=== PATIENT | male | born 2000 | race Caucasian/White ===

== ENCOUNTER 2019-07-09 17:01 | Inpatient (IN) | payer OTHER ==
[~2019-07-09] VITALS: Ht 172.7 cm; Wt 78.0 kg
[2019-07-09 19:00] VITALS: BP 123/63
[2019-07-09 19:20] VITALS: BP 123/63
[2019-07-09] MEDS ORDERED: ACETAMINOPHEN 325 MG TABLET PO PRN (19:30)
[2019-07-09] MEDS: SENNA 187 MG TABLET PO SCH (20:50)
[2019-07-09] MEDS: DOCUSATE SODIUM 100 MG CAPSULE PO SCH (20:51)
[2019-07-09] MEDS: SODIUM CHLORIDE 1 GM TABLET PO SCH (23:03)
[2019-07-10 00:59] VITALS: BP 120/80
[2019-07-10 06:49] LABS: BASOPHILS % (AUTO) 1.2 % (0.0-2.0); EOSINOPHILS % (AUTO) 1.9 % (1.0-6.0); HEMATOCRIT 40.6 % (41-53); HEMOGLOBIN 13.6 g/dL (13.5-17.5); LYMPHOCYTES # (AUTO) 1.4 K/uL (1.0-4.8); MEAN CORPUSCULAR HGB CONC 33.5 G/dL (31.0-37.0); MEAN CORPUSCULAR VOLUME 90 fL (80-100); MONOCYTES # (AUTO) 0.4 K/uL (0.1-1.0); MONOCYTES % (AUTO) 9.5 % (2.0-9.0); NEUTROPHILS # (AUTO) 2.7 K/uL (1.8-7.7); NEUTROPHILS % (AUTO) 57.4 % (40.0-70.0); PLATELET COUNT (AUTO) 227 K/uL (150-450); RED BLOOD CELL COUNT(AUTO) 4.54 MIL/uL (4.50-5.90); RED CELL DISTRIBUTION WIDTH 12.9 % (11.5-14.5)
[2019-07-10 07:29] LABS: ALANINE AMINOTRANSFERASE 25 U/L (12-78); ALBUMIN 3.5 g/dL (3.4-5.0); ALKALINE PHOSPHATASE 49 U/L (46-116); ANION GAP 6 mmol/L (8-16); ASPARTATE AMINOTRANSFERASE 16 U/L (15-37); BILIRUBIN,TOTAL 0.4 mg/dL (0.1-1.0); CALCIUM, TOTAL 8.9 mg/dL (8.8-10.5); CARBON DIOXIDE 30 mmol/L (22-29); CHLORIDE 105 mmol/L (98-107); CREATININE 0.76 mg/dL (0.60-1.30); GLOMERULAR FILTR. RATE CALC > 60 mL/min (>60); GLUCOSE,RANDOM 99 mg/dL (70-110); POTASSIUM 3.8 mmol/L (3.5-5.1); SODIUM SERUM 141 mmol/L (136-145); TOTAL PROTEIN, SERUM 6.7 g/dL (6.4-8.2); UREA NITROGEN, BLOOD 9 mg/dL (7-18)
[2019-07-10 08:00] VITALS: BP 121/64
[2019-07-10] MEDS: DOCUSATE SODIUM 100 MG CAPSULE PO SCH ×2 (08:22→20:22)
[2019-07-10] MEDS: SODIUM CHLORIDE 1 GM TABLET PO SCH ×3 (08:23→20:22)
[2019-07-10 16:00] VITALS: BP 123/76
[2019-07-10] MEDS: SENNA 187 MG TABLET PO SCH (20:22)
[2019-07-10] MEDS ORDERED: PNEUMOCOCCAL VACCINE POLYVALENT 0.5 ML VIAL [PPSV23] IM ONE (22:00)
[2019-07-10] MEDS ORDERED: INFLUENZA VIRUS VACCINE QVS 2019-20 (3YR+)/PF 60 MCG/0.5 ML SYRINGE IM ONE (22:00)
[2019-07-10 23:06] VITALS: BP 120/70
[2019-07-11 08:00] VITALS: BP 114/73
[2019-07-11] MEDS: SODIUM CHLORIDE 1 GM TABLET PO SCH ×3 (08:22→20:04)
[2019-07-11] MEDS: DOCUSATE SODIUM 100 MG CAPSULE PO SCH ×2 (08:22→20:04)
[2019-07-11 15:40] VITALS: BP 122/62
[2019-07-11 19:40] VITALS: BP 128/83
[2019-07-11] MEDS: SENNA 187 MG TABLET PO SCH (20:04)
[2019-07-11 23:00] VITALS: BP 125/69
[2019-07-12] MEDS: FAMOTIDINE 20 MG TABLET PO SCH ×2 (06:03→16:51)
[2019-07-12 08:15] VITALS: BP 115/71
[2019-07-12] MEDS: DOCUSATE SODIUM 100 MG CAPSULE PO SCH ×2 (08:15→20:09)
[2019-07-12] MEDS: SODIUM CHLORIDE 1 GM TABLET PO SCH ×3 (08:15→20:08)
[2019-07-12 08:34] LABS: ANION GAP 5 mmol/L (8-16); CALCIUM, TOTAL 8.7 mg/dL (8.8-10.5); CARBON DIOXIDE 29 mmol/L (22-29); CHLORIDE 102 mmol/L (98-107); CREATININE 0.78 mg/dL (0.60-1.30); GLOMERULAR FILTR. RATE CALC > 60 mL/min (>60); GLUCOSE,RANDOM 97 mg/dL (70-110); POTASSIUM 3.9 mmol/L (3.5-5.1); SODIUM SERUM 136 mmol/L (136-145); UREA NITROGEN, BLOOD 7 mg/dL (7-18)
[2019-07-12 15:31] VITALS: BP 110/57
[2019-07-12] MEDS: MELATONIN 5 MG TABLET PO PRN (20:09)
[2019-07-12] MEDS: SENNA 187 MG TABLET PO SCH (20:09)
[2019-07-13 01:45] VITALS: BP 117/72
[2019-07-13] MEDS: FAMOTIDINE 20 MG TABLET PO SCH ×2 (06:00→16:01)
[2019-07-13 07:34] VITALS: BP 116/63
[2019-07-13] MEDS: DOCUSATE SODIUM 100 MG CAPSULE PO SCH (08:15)
[2019-07-13] MEDS: SODIUM CHLORIDE 1 GM TABLET PO SCH ×3 (08:15→20:11)
[2019-07-13 15:30] VITALS: BP 118/68
[2019-07-13] MEDS: DOCUSATE SODIUM 250 MG CAPSULE PO SCH (20:11)
[2019-07-13] MEDS: SENNA 187 MG TABLET PO SCH (20:11)
[2019-07-13] MEDS: MELATONIN 5 MG TABLET PO PRN (20:11)
[2019-07-13] MEDS ORDERED: DOCU-342 PO (21:56)
[2019-07-13] MEDS ORDERED: SENN8.6T90 PO (21:56)
[2019-07-13] MEDS ORDERED: FAMO20 PO (21:56)
[2019-07-13] MEDS ORDERED: NACL1 PO (21:56)
[2019-07-14 02:28] VITALS: BP 113/65
[2019-07-14] MEDS: FAMOTIDINE 20 MG TABLET PO SCH ×2 (06:19→16:27)
[2019-07-14 06:55] VITALS: BP 106/65
[2019-07-14] MEDS: SODIUM CHLORIDE 1 GM TABLET PO SCH ×3 (08:02→20:31)
[2019-07-14] MEDS: DOCUSATE SODIUM 250 MG CAPSULE PO SCH ×2 (08:02→20:31)
[2019-07-14] MEDS: POLYETHYLENE GLYCOL 3350 17 GM PACKET PO PRN (14:05)
[2019-07-14 15:28] VITALS: BP 115/60
[2019-07-14] MEDS: MELATONIN 5 MG TABLET PO PRN (20:31)
[2019-07-14] MEDS: SENNA 187 MG TABLET PO SCH (20:31)
[2019-07-15 04:00] VITALS: BP 116/61
[2019-07-15] MEDS: FAMOTIDINE 20 MG TABLET PO SCH ×2 (05:59→16:37)
[2019-07-15 07:20] VITALS: BP 109/68
[2019-07-15 07:33] LABS: ANION GAP 4 mmol/L (8-16); CARBON DIOXIDE 32 mmol/L (22-29); CHLORIDE 105 mmol/L (98-107); CREATININE 0.83 mg/dL (0.60-1.30); GLOMERULAR FILTR. RATE CALC > 60 mL/min (>60); GLUCOSE,RANDOM 101 mg/dL (70-110); POTASSIUM 3.9 mmol/L (3.5-5.1); SODIUM SERUM 141 mmol/L (136-145); UREA NITROGEN, BLOOD 6 mg/dL (7-18)
[2019-07-15] MEDS: POLYETHYLENE GLYCOL 3350 17 GM PACKET PO PRN (07:55)
[2019-07-15] MEDS: DOCUSATE SODIUM 250 MG CAPSULE PO SCH ×2 (07:55→20:29)
[2019-07-15] MEDS: SODIUM CHLORIDE 1 GM TABLET PO SCH ×3 (07:56→20:29)
[2019-07-15 16:05] VITALS: BP 128/68
[2019-07-15] MEDS: SENNA 187 MG TABLET PO SCH (20:29)
[2019-07-15] MEDS: MELATONIN 5 MG TABLET PO PRN (20:30)
[2019-07-16 05:30] VITALS: BP 106/58
[2019-07-16] MEDS: FAMOTIDINE 20 MG TABLET PO SCH ×2 (05:45→16:20)
[2019-07-16 07:25] VITALS: BP 115/64
[2019-07-16] MEDS: DOCUSATE SODIUM 250 MG CAPSULE PO SCH ×2 (08:21→20:01)
[2019-07-16] MEDS: SODIUM CHLORIDE 1 GM TABLET PO SCH ×3 (08:21→20:01)
[2019-07-16 16:00] VITALS: BP 113/57
[2019-07-16] MEDS: SENNA 187 MG TABLET PO SCH (20:01)
[2019-07-17 05:01] VITALS: BP 116/63
[2019-07-17] MEDS: FAMOTIDINE 20 MG TABLET PO SCH ×2 (06:01→16:01)
[2019-07-17 07:51] VITALS: BP 119/68
[2019-07-17] MEDS: DOCUSATE SODIUM 250 MG CAPSULE PO SCH ×2 (08:22→20:31)
[2019-07-17] MEDS: SODIUM CHLORIDE 1 GM TABLET PO SCH ×3 (08:22→20:30)
[2019-07-17 15:07] VITALS: BP 113/70
[2019-07-17] MEDS: SENNA 187 MG TABLET PO SCH (20:31)
[2019-07-17] MEDS: MELATONIN 5 MG TABLET PO PRN (20:33)
[2019-07-17 23:30] VITALS: BP 115/67
[2019-07-18] MEDS: FAMOTIDINE 20 MG TABLET PO SCH ×2 (05:07→16:46)
[2019-07-18 07:20] VITALS: BP 123/77
[2019-07-18] MEDS: DOCUSATE SODIUM 250 MG CAPSULE PO SCH ×2 (08:33→20:32)
[2019-07-18] MEDS: SODIUM CHLORIDE 1 GM TABLET PO SCH ×3 (08:33→20:29)
[2019-07-18 15:01] VITALS: BP 116/69
[2019-07-18] MEDS: MELATONIN 5 MG TABLET PO PRN (20:28)
[2019-07-18] MEDS: SENNA 187 MG TABLET PO SCH (21:17)
[2019-07-19 05:30] VITALS: BP 125/57
[2019-07-19] MEDS: FAMOTIDINE 20 MG TABLET PO SCH ×2 (05:40→15:49)
[2019-07-19 08:00] VITALS: BP 118/62
[2019-07-19] MEDS: DOCUSATE SODIUM 250 MG CAPSULE PO SCH ×2 (08:06→20:10)
[2019-07-19] MEDS: SODIUM CHLORIDE 1 GM TABLET PO SCH ×3 (08:06→20:10)
[2019-07-19 15:00] VITALS: BP 125/73
[2019-07-19] MEDS: MELATONIN 5 MG TABLET PO PRN (20:10)
[2019-07-19] MEDS: SENNA 187 MG TABLET PO SCH (20:10)
[2019-07-20 04:00] VITALS: BP 123/64
[2019-07-20] MEDS: FAMOTIDINE 20 MG TABLET PO SCH (05:24)
[2019-07-20 07:09] VITALS: BP 121/56
[2019-07-20] MEDS: SODIUM CHLORIDE 1 GM TABLET PO SCH (08:34)
[2019-07-20] MEDS: DOCUSATE SODIUM 250 MG CAPSULE PO SCH (08:34)
== END 2019-07-20 12:24 | disposition home or self-care (01) | DRG 58 ==
LOC: 4E 18:28
PROVIDERS: ADMIT Physical Medicine & Rehabilitation; ATTEND Physical Medicine & Rehabilitation
DX: G81.91 Hemiplegia, unspecified affecting right dominant side (principal); I61.8 Other nontraumatic intracerebral hemorrhage; E87.1 Hypo-osmolality and hyponatremia; Q27.30 Arteriovenous malformation, site unspecified; R47.01 Aphasia; G47.00 Insomnia, unspecified; G89.0 Central pain syndrome; Z23 Encounter for immunization
CPT/HCPCS: 87081; 90686; 92507; 92523; 93970; 97110; 97112; 97116; 97162; 97166; 97530; 97535; 99366